=== PATIENT | female | born 1965 | race African-American/Black ===

== ENCOUNTER 2020-01-18 04:17 | Inpatient (IN) | payer OTHER ==
[2020-01-18] MEDS ORDERED: ROCURONIUM BROMIDE 50 MG/5 ML SYRINGE ONE ×2 (07:20→09:35)
[2020-01-18] MEDS ORDERED: SUCCINYLCHOLINE CHLORIDE 200 MG/10 ML SYRINGE ONE (07:20)
[2020-01-18] MEDS ORDERED: LIDOCAINE HCL/PF 2% SDV 5ML VIAL ONE (07:20)
[2020-01-18] MEDS ORDERED: DEXAMETHASONE SOD PHOSPHATE 4 MG/1 ML VIAL ONE (07:20)
[2020-01-18] MEDS ORDERED: ONDANSETRON 4 MG/2 ML VIAL ONE (07:20)
[2020-01-18] MEDS ORDERED: PROPOFOL 20 ML ONE ×2 (07:20→09:40)
[2020-01-18] MEDS ORDERED: fentaNYL CITRATE 250 MCG/5 ML VIAL ONE (07:20)
[2020-01-18] MEDS ORDERED: BUPIVACAINE LIPOSOME/PF (EXPAREL) 266 MG/20 ML VIAL ONE (07:35)
[2020-01-18] MEDS ORDERED: MIDAZOLAM HCL 2 MG/2 ML SINGLE DOSE VIAL ONE ×2 (07:37)
[2020-01-18] MEDS ORDERED: ceFAZolin SODIUM 1 GM VIAL ONE (08:18)
[2020-01-18] MEDS ORDERED: ceFAZolin SODIUM 1 GM VIAL IVPB ONE (08:23)
[2020-01-18] MEDS ORDERED: NEOSTIGMINE METHYLSULFATE 0.5 MG/1 ML - 10 ML MDV ONE (09:43)
[2020-01-18] MEDS ORDERED: GLYCOPYRROLATE 0.2 MG/1 ML VIAL ONE (09:43)
[2020-01-18] MEDS ORDERED: IBUPROFEN 800 MG/8 ML IJ IVPB PRN (10:15)
[2020-01-18] MEDS ORDERED: oxyCODONE HCL 5 MG TABLET PO PRN ×2 (10:15)
[2020-01-18] MEDS ORDERED: IBUPROFEN 800 MG/8 ML IJ IVPB ONE ×2 (11:03→11:10)
[2020-01-18] MEDS ORDERED: ONDANSETRON 4 MG/2 ML VIAL IVPUSH PRN (11:04)
[2020-01-18] MEDS ORDERED: LACTATED RINGERS SOLUTION 1,000 ML IV SCH (11:15)
[2020-01-18] MEDS ORDERED: HYDROmorphone HCl 2 MG/ML VIAL IVPUSH ONE (11:50)
[2020-01-18] MEDS ORDERED: HYDROmorphone HCl 2 MG/ML VIAL ONE (11:56)
[2020-01-18 15:13] VITALS: BMI 37.8
[2020-01-18] MEDS ORDERED: LIDOCAINE 5% TOPICAL PATCH TP SCH (18:00)
[2020-01-18] MEDS: LIDOCAINE 5% TOPICAL PATCH TP SCH (18:14)
[2020-01-18] MEDS: CEFAZOLIN 2 GM/D5W 2 GM/50 ML ML IVPB SCH (18:21)
[2020-01-19] MEDS: CEFAZOLIN 2 GM/D5W 2 GM/50 ML ML IVPB SCH (02:22)
[2020-01-19] MEDS: LIDOCAINE PATCH REMOVAL MC SCH (06:17)
[2020-01-19 07:57] LABS: BASO % 0.3 % (0-2.0); EOS % 0.6 % (0-4.5); HEMATOCRIT 33.3 % (32.4-45.2); HEMOGLOBIN 10.5 GM/dL (10.7-15.3); LYMPH % 10.5 % (8-40); MCH 28.6 pg (25.7-33.7); MCHC 31.6 g/dl (32.0-36.0); MEAN CELL VOLUME 90.6 fl (80-96); MEAN PLT VOLUME 8.3 fl (7.5-11.1); MONO % 8.6 % (3.8-10.2); PLATELET COUNT 263 K/MM3 (134-434); RBC 3.68 M/mm3 (3.60-5.2); RDW 14.5 % (11.6-15.6); WHITE BLOOD COUNT 11.7 K/mm3 (4.0-10.0)
[2020-01-19] MEDS: hydrALAZINE HCL 25 MG TABLET (FP) PO SCH ×3 (09:33→21:05)
[2020-01-19] MEDS: SPIRONOLACTONE 25 MG TABLET PO SCH (09:33)
[2020-01-19] MEDS: LOSARTAN POTASSIUM 50 MG TABLET PO SCH (09:33)
[2020-01-19] MEDS ORDERED: LIDOCAINE 5% TOPICAL PATCH TP SCH (10:00)
[2020-01-19] MEDS: ACETAMINOPHEN 325 MG TABLET (FP) PO PRN (11:57)
[2020-01-19] MEDS: LIDOCAINE 5% TOPICAL PATCH TP SCH (17:24)
[2020-01-19] MEDS: METOPROLOL TARTRATE 50 MG TABLET (FP) PO SCH (21:05)
[2020-01-20] MEDS: hydrALAZINE HCL 25 MG TABLET (FP) PO SCH ×2 (05:21→14:49)
[2020-01-20] MEDS: LIDOCAINE PATCH REMOVAL MC SCH (06:36)
[2020-01-20] MEDS: ACETAMINOPHEN 325 MG TABLET (FP) PO PRN ×2 (08:23→15:04)
[2020-01-20] MEDS: LOSARTAN POTASSIUM 50 MG TABLET PO SCH (09:08)
[2020-01-20] MEDS: METOPROLOL TARTRATE 50 MG TABLET (FP) PO SCH (09:08)
[2020-01-20] MEDS: SPIRONOLACTONE 25 MG TABLET PO SCH (09:08)
[2020-01-20 15:12] VITALS: BP 146/87; PULSE 76; TEMP 99.1
== END 2020-01-20 16:35 | disposition home or self-care (01) | DRG 743 ==
LOC: J2C 04:17 → J6S 12:36
PROVIDERS: ADMIT Obstetrics & Gynecology; ATTEND Obstetrics & Gynecology
PROC: 0UT90ZL Resection of Uterus, Supracervical, Open Approach (ICD-10-PCS; principal; 2020-01-18 08:00)
DX: D25.9 Leiomyoma of uterus, unspecified (principal); N92.0 Excessive and frequent menstruation with regular cycle; I10 Essential (primary) hypertension; R10.2 Pelvic and perineal pain
CPT/HCPCS: 36415; 84703; 85025; 86780; 86850; 86900; 86901; 86922; 88307-TC; 94760